=== PATIENT | male | born 1950 | race Caucasian/White ===

== ENCOUNTER 2016-06-11 06:49 | Emergency (ER) | payer SELFPAY ==
[2016-06-11 07:03] VITALS: BP 133/74
== END 2016-06-11 07:57 | disposition left against medical advice (07) ==
LOC: ER 06:49
DX: Z53.21 Procedure and treatment not carried out due to patient leaving prior to being seen by health care provider (principal)

== ENCOUNTER 2017-06-11 01:10 | Emergency (ER) | payer SELFPAY ==
[2017-06-11] MEDS ORDERED: ASPIRIN 81 MG TABLET, CHEWABLE PO ONE (01:16)
[2017-06-11 02:56] LABS: ABSOLUTE LYMPHOCYTES (AUTO) 1.4 10^3/uL (0.5-4.7); ABSOLUTE MONOCYTES (AUTO) 1.1 10^3/uL (0.1-1.4); ABSOLUTE NEUT (AUTO) 10.4 10^3/uL (1.7-8.2); BASOPHILS % (AUTO) 0.3 % (0-2); EOSINOPHILS % (AUTO) 0.1 % (0-6); HEMATOCRIT 42.4 % (37.9-51.0); LYMPHOCYTES % (AUTO) 10.9 % (13-45); MEAN CORPUSCULAR HEMOGLOBIN 26.5 pg (27.0-33.4); MEAN CORPUSCULAR HGB CONC 32.9 g/dL (32.0-36.0); MEAN CORPUSCULAR VOLUME 81 fl (80-97); MONOCYTES % (AUTO) 8.8 % (3-13); PLATELET COUNT 247 10^3/uL (150-450); RED BLOOD COUNT 5.26 10^6/uL (4.35-5.55); RED CELL DISTRIBUTION WIDTH 15.2 % (11.5-14.0); SEGMENTED NEUTROPHILS % (AUTO) 79.9 % (42-78); TOTAL CELLS COUNTED % (AUTO) 100 %
[2017-06-11 03:11] LABS: ALANINE AMINOTRANSFERASE 25 U/L (21-72); ALBUMIN 4.4 g/dL (3.5-5.0); ALKALINE PHOSPHATASE 104 U/L (38-126); ANION GAP 17 (5-19); ASPARTATE AMINO TRANSFERASE 47 U/L (17-59); BILIRUBIN,DIRECT 0.3 mg/dL (0.0-0.4); BILIRUBIN,TOTAL 0.7 mg/dL (0.2-1.3); BLOOD UREA NITROGEN 13 mg/dL (7-20); CARBON DIOXIDE 22 mmol/L (22-30); CHLORIDE 94 mmol/L (98-107); CREATINE KINASE 1015 U/L (55-170); GLUCOSE 80 mg/dL (75-110); SODIUM 132.5 mmol/L (137-145); TOTAL PROTEIN 7.6 g/dL (6.3-8.2)
[2017-06-11] MEDS ORDERED: MULTIVITAMIN TABLET PO ONE (03:11)
[2017-06-11] MEDS ORDERED: THIAMINE HCL 100 MG in NORMAL SALINE 50 ML IV ONE (03:12)
[2017-06-11] MEDS ORDERED: FOLIC ACID INJ 5 MG/1 ML 10 ML VIAL IV ONE (03:15)
[2017-06-11 03:23] LABS: CREATINE KINASE MB 4.09 ng/mL (<4.55); TROPONIN I 0.018 ng/mL
[2017-06-11] MEDS ORDERED: THIAMINE HCL INJ 200 MG/2 ML VIAL ONE (03:31)
[2017-06-11] MEDS ORDERED: NORMAL SALINE 1000 ML 1,000 ML IV ONE (04:11)
--- NOTE | 2017-06-11 04:19 | RADIOLOGY REPORT (SQ) ---
EXAM DESCRIPTION: CHEST SINGLE VIEW CLINICAL HISTORY: 67 years Male, cp COMPARISON: 2.3.14. NUMBER OF VIEWS/TECHNIQUE: 1/AP LIMITATIONS: None. FINDINGS: Minimal atelectasis or scar of the right costophrenic angle, normal cardiac silhouette, and intact bony thorax. IMPRESSION: No acute cardiopulmonary findings.
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
--- NOTE | 2017-06-11 09:30 | EKG REPORT ---
SEVERITY:- ABNORMAL ECG - SINUS RHYTHM LEFT ATRIAL ABNORMALITY LVH WITH SECONDARY REPOLARIZATION ABNORMALITY : Confirmed by: Elijah Glass 11-Jun-2017 09:30:24
[2017-06-11 11:31] VITALS: BP 102/59
== END 2017-06-11 11:37 | disposition home or self-care (01) ==
LOC: ER 01:10
DX: F10.129 Alcohol abuse with intoxication, unspecified (principal); F17.210 Nicotine dependence, cigarettes, uncomplicated; R42 Dizziness and giddiness; R53.1 Weakness; R11.10 Vomiting, unspecified; I10 Essential (primary) hypertension; F32.9 Major depressive disorder, single episode, unspecified; Z88.5 Allergy status to narcotic agent; Z88.0 Allergy status to penicillin
CPT/HCPCS: 93005; 99284; 96361; 96374; 96375; 36415; 82553; 82962; 82550; 85025; 80053; 84484; 71045; 93010; J3490; J3411; J7030

== ENCOUNTER 2017-07-11 23:34 | Emergency (ER) | payer SELFPAY ==
[2017-07-12] MEDS ORDERED: COLCHICINE 0.6 MG TABLET PO ONE ×2 (00:56→06:39)
[2017-07-12] MEDS ORDERED: INDOMETHACIN 50 MG CAPSULE PO ONE (00:57)
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
[2017-07-12 07:57] VITALS: BP 124/86
== END 2017-07-12 07:56 | disposition home or self-care (01) ==
LOC: ER 23:34
DX: M10.9 Gout, unspecified (principal); M79.671 Pain in right foot; M79.672 Pain in left foot; Z88.5 Allergy status to narcotic agent; Z88.0 Allergy status to penicillin; Z87.891 Personal history of nicotine dependence; I10 Essential (primary) hypertension
CPT/HCPCS: 99283; J3490

== ENCOUNTER 2018-03-28 21:11 | Emergency (ER) | payer SELFPAY ==
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
[2018-03-29 02:14] VITALS: BP 118/70
== END 2018-03-29 02:14 | disposition home or self-care (01) ==
LOC: ER 21:11
DX: Z00.00 Encounter for general adult medical examination without abnormal findings (principal); Z76.0 Encounter for issue of repeat prescription; I10 Essential (primary) hypertension; Z59.0 Homelessness; Z88.5 Allergy status to narcotic agent; Z88.0 Allergy status to penicillin
CPT/HCPCS: 99282

== ENCOUNTER 2018-03-30 02:17 | Emergency (ER) | payer SELFPAY ==
[2018-03-30 02:33] VITALS: BP 120/74
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
== END 2018-03-30 03:46 | disposition home or self-care (01) ==
LOC: ER 02:17
DX: R04.0 Epistaxis (principal); Z59.0 Homelessness; F17.210 Nicotine dependence, cigarettes, uncomplicated; I10 Essential (primary) hypertension
CPT/HCPCS: 99283

== ENCOUNTER 2018-07-10 21:30 | Emergency (ER) | payer SELFPAY ==
[2018-07-10] MEDS ORDERED: OXYCODONE-ACETAMINOPHEN 5-325 MG TABLET PO ONE (22:26)
--- NOTE | 2018-07-10 23:07 | RADIOLOGY REPORT (SQ) ---
EXAM DESCRIPTION: XR CHEST 2 VIEWS COMPLETED DATE/TME: 07/10/2018 22:25 CLINICAL HISTORY: 68 years, Male, sob COMPARISON: 06/11/2017 chest x-ray NUMBER OF VIEWS: 2 TECHNIQUE: Frontal and lateral views of the chest LIMITATIONS: None. FINDINGS: Cardiomegaly. Osteopenia. Mild interstitial edema. Tiny bibasilar effusions and/or pleural thickening. Underlying COPD. Post surgical change cervical spine IMPRESSION: Mild interstitial edema with tiny effusions and/or pleural thickening. Underlying COPD copyright 2010 [employer]- All Rights Reserved
--- NOTE | 2018-07-10 23:12 | RADIOLOGY REPORT (SQ) ---
EXAM DESCRIPTION: XR HUMERUS COMPLETED DATE/TME: 07/10/2018 22:25 CLINICAL HISTORY: 68 years, Male, pain COMPARISON: None. NUMBER OF VIEWS: 3 TECHNIQUE: 3 view left humerus LIMITATIONS: None. FINDINGS: Osteopenia. Negative for acute fracture or dislocation. Degenerative changes of the elbow and shoulder. Soft tissues are unremarkable IMPRESSION: Osteopenia with degenerative change copyright 2010 [email or web address]- All Rights Reserved
[2018-07-10] MEDS ORDERED: IPRATROPIUM/ALBUTEROL 0.5-2.5 MG/3 ML AMPUL NEB ONE (23:20)
--- NOTE | 2018-07-10 23:20 | ER Document Report ---
ED General - General Chief Complaint: Arm Pain Stated Complaint: LEFT ARM PAIN Time Seen by Provider: 07/10/18 22:01 Mode of Arrival: Medic Information source: Patient, Law Enforcement, Emergency Med Personnel, [facility] Records Notes: 68-year-old male presents via EMS from the local homeless custodial after he was refused entrance. Víctor RUTH was called to the custodial because the patient was intoxicated and would not leave. He reports that he was taken from [facility] where he was and presents for over the last 9 months and brought to the custodial here in [place] but they refused him because he was intoxicated. Patient has multiple chronic complaints including bilateral lower extremity leg pain, left upper extremity pain. He states that he is supposed to be taking multiple medications but he does not what no where they are or what they are. He states that over the last 9 months while he was in present he had been taken back in for to [facility] where he reports that they told him he requires "stents". TRAVEL OUTSIDE OF THE [place] IN LAST 30 DAYS: No - HPI Onset: Other Onset/Duration: Persistent Quality of pain: Achy Severity: Mild Associated symptoms: Leg swelling - Chronic, Shortness of breath - Occasionally not currently, Other - Leg pain chronic, left shoulder pain chronic. denies: Chest pain, Nonproductive cough, Productive cough, Fever, Headache, Nausea, Vomiting, Sore throat, Sweating Exacerbated by: Movement, Walking Relieved by: Denies Similar symptoms previously: Yes Recently seen / treated by doctor: Yes - Related Data Allergies/Adverse Reactions: morphine [Morphine] Allergy (Verified 06/11/16 07:03) Penicillins Allergy (Verified 06/11/17 02:01) Past Medical History - General Information source: Patient, Law Enforcement, Emergency Med Personnel, [facility] Records - Social History Smoking Status: Unknown if Ever Smoked Frequency of alcohol use: Occasional Drug Abuse: None Lives with: Homeless Family History: CAD Patient has suicidal ideation: No Patient has homicidal ideation: No - Past Medical History Cardiac Medical History: Reports: Hx Hypertension, Hx Peripheral Vascular Disease Renal/ Medical History: Denies: Hx Peritoneal Dialysis Musculoskeletal Medical History: Reports Hx Arthritis, Reports Hx Gout, Reports Hx Musculoskeletal Deformity, Reports Hx Musculoskeletal Trauma Psychiatric Medical History: Reports: Hx Depression Past Surgical History: Reports: Hx Bowel Surgery - Multiple bowel surgeries, Hx Orthopedic Surgery - Right hip surgery,neck - Immunizations Hx Diphtheria, Pertussis, Tetanus Vaccination: Yes Review of Systems - Review of Systems Notes: REVIEW OF SYSTEMS: CONSTITUTIONAL : Denies fever, chills, or sweats. Denies recent illness. Denies weight loss, recent hospitalizations. EENT: Denies visual changes, eye pain. Denies sore throat, oral lesions, difficulty swallowing. CARDIOVASCULAR: Denies chest pain. Denies palpitations. Denies lower extremity edema. RESPIRATORY: Denies cough. Denies wheezing. GASTROINTESTINAL: Denies abdominal pain or distention. Denies nausea, vomiting, or diarrhea. Denies blood in vomitus, stools, or per rectum. Denies black, tarry stools. Denies constipation. GENITOURINARY: Denies difficulty urinating, painful urination, frequency, blood in urine, testicular pain or penile discharge. MUSCULOSKELETAL: Denies back or neck pain or stiffness. SKIN: Denies rash, lesions or sores. HEMATOLOGIC : Denies easy bruising or bleeding. LYMPHATIC: Denies swollen glands. NEUROLOGICAL: Denies confusion or altered mental status. Denies loss of consciousness. Denies dizziness or lightheadedness. Denies headache. Denies weakness or paralysis. Denies problems difficulty with ambulation, slurred speech. Denies sensory loss, numbness,. Denies seizures. PSYCHIATRIC: Denies anxiety or stress. Denies depression, suicidal ideation, or Physical Exam - Vital signs Vitals: Temp Pulse Resp BP Pulse Ox 98 F 87 16 116/72 100 07/10/18 21:30 07/10/18 21:30 07/10/18 21:30 07/10/18 21:30 07/10/18 21:30 - Notes Notes: PHYSICAL EXAMINATION: GENERAL: Well-appearing, well-nourished and in no acute distress. HEAD: Atraumatic, normocephalic. EYES: Pupils equal round and reactive to light, extraocular movements intact, sclera anicteric, conjunctiva are normal. ENT: Nares patent, oropharynx clear without exudates. Moist mucous membranes. NECK: Normal range of motion, supple without lymphadenopathy LUNGS: Breath sounds clear to auscultation bilaterally and equal. No wheezes rales or rhonchi. HEART: Regular rate and rhythm without murmurs ABDOMEN: Soft, nontender, nondistended abdomen. No guarding, no rebound. No masses appreciated. Musculoskeletal: Normal range of motion, no pitting or edema. No cyanosis. Right lower extremity with 1+ pitting edema no erythema, pain with palpation to the calf. Reported to be chronic. NEUROLOGICAL: Cranial nerves grossly intact. Normal speech, normal gait. Normal sensory, motor exams PSYCH: Normal mood, normal affect. SKIN: Warm, Dry, normal turgor, no rashes or lesions noted. Course - Re-evaluation Re-evalutation: Chest X-Ray 07/10/18 22:25 IMPRESSION: Mild interstitial edema with tiny effusions and/or pleural thickening. Underlying COPD copyright 2010 [employer]- All Rights Reserved Humerus X-Ray 07/10/18 22:25 IMPRESSION: Osteopenia with degenerative change copyright 2010 [employer]- All Rights Reserved Temp Pulse Resp BP Pulse Ox 98 F 87 16 116/72 100 07/10/18 21:30 07/10/18 21:30 07/10/18 21:30 07/10/18 21:30 07/10/18 21:30 07/10/18 23:19 68-year-old homeless man was brought in via EMS from the homeless custodial after police were called because the patient refused to leave the custodial which refused him entrance due to alcohol intoxication. Patient reports that he has spent the last 9 months in group home. He has multiple chronic complaints including bilateral feet pain, left shoulder pain, bilateral leg pain, shortness of breath with walking. He does report that he has been receiving care at [facility] and is currently supposed to be on medication but he states that he lost them and has no idea what they are. Patient has no family in the area, no transportation, no money. Social work consult has been placed to help with placement and medication reconciliation. 07/11/18 02:25 - Vital Signs Vital signs: Temp Pulse Resp BP Pulse Ox 98 F 87 16 116/72 100 07/10/18 21:30 07/10/18 21:30 07/10/18 21:30 07/10/18 21:30 07/10/18 21:30 - Diagnostic Test Radiology reviewed: Image reviewed, Reports reviewed Discharge - Discharge Clinical Impression: Homeless, Chronic pain of left upper extremity, Chronic shortness of breath Alcohol intoxication Qualifiers: Complication of substance-induced condition: uncomplicated Qualified Code(s): F10.920 - Alcohol use, unspecified with intoxication, uncomplicated Condition: Good
--- NOTE | 2018-07-11 10:25 | ER Document Report ---
Doctor's Note Notes: 07/11/18 10:23 Patient seen and evaluated. His vital signs are stable. He is complaining of pain in his left arm which is chronic and unchanged. He denies any acute dyspnea. Patient is clinically sober and mentating appropriately. He is calm and cooperative. He is awaiting licensed master social worker consultation to assist in ge tting him his home medications as well as primary care follow-up and possibly living/transportation assistance. Patient does state he has an aunt in the area who will pick him up but will not allow him to live with her
[2018-07-11 11:02] VITALS: BP 144/88
== END 2018-07-11 12:28 | disposition home or self-care (01) ==
LOC: ER 21:30
DX: G89.29 Other chronic pain (principal); M79.602 Pain in left arm; Z59.0 Homelessness; R06.02 Shortness of breath; F10.920 Alcohol use, unspecified with intoxication, uncomplicated
CPT/HCPCS: 94640; 99283; 71046; 73060; J7620

== ENCOUNTER 2018-07-12 01:17 | Observation (INO) | payer SELFPAY ==
[2018-07-12] MEDS ORDERED: ASPIRIN 81 MG TABLET, CHEWABLE PO ONE (01:30)
--- NOTE | 2018-07-12 01:30 | ER Document Report ---
ED General - General Chief Complaint: Palpitations Stated Complaint: CHEST PAIN Time Seen by Provider: 07/12/18 01:30 Notes: Patient is a 68-year-old male that presents to the emergency department for chief complaint of chest pain. The patient reports that the pain started over the past 3 days. The currently rate the pain as 2 out of 10, and described as heaviness in his chest. They have had associated shortness of breath and dyspnea on exertion. Denies any diaphoresis, nausea or vomiting or abdominal pain. Their risk factors for heart disease include history of CHF, tobacco use. He reports he was told he should have a heart cath but never had one. He states he recently got out of group home, he is been having progressive dyspnea on exertion over the past several months, but worse over the past 2 days, and today he had chest pain associated as well. He states he was on medications, but has not been on them in some time. He also complains of having pain in both of his feet and tingling in his feet and hands. Past Medical History: CHF Past Surgical History: Colon resection Social History: Admits to smoking cigarettes, and daily alcohol use. Currently the patient is homeless, does not have a doctor Family History: Reviewed and noncontributory for presenting illness Allergies: Reviewed, see documented allergy list. REVIEW OF SYSTEMS: Other than noted above, the 12 point review of systems was reviewed with the patient and were negative, all pertinent findings are included in the HPI. PHYSICAL EXAMINATION: Vital signs reviewed, nursing noted reviewed. GENERAL: Elderly male, appears somewhat disheveled HEAD: Atraumatic, normocephalic. EYES: Eyes appear normal, extraocular movements intact, sclera anicteric, c onjunctiva are normal. ENT: nares patent, oropharynx clear without exudates. Moist mucous membranes. NECK: Normal range of motion, supple without lymphadenopathy LUNGS: Breath sounds clear to auscultation bilaterally and equal. No wheezes rales or rhonchi. HEART: Heart rate borderline tachycardic, regular rhythm, 3+ systolic murmur noted. ABDOMEN: Soft, nontender, normoactive bowel sounds. No rebound, guarding, or rigidity. No masses appreciated. Large ventral laparotomy incisional scar, healed, no signs of infection, abdominal bruits noted. EXTREMITIES: good range of motion, bilateral lower extremity edema, feet are tender to palpate bilaterally. No erythema, or warmth appreciated. NEUROLOGICAL: No focal neurological deficits. Moves all extremities spontaneously Motor and sensory grossly intact on exam. PSYCH: Normal mood, normal affect. SKIN: Warm, Dry, normal turgor, no rashes or lesions noted on exposed skin TRAVEL OUTSIDE OF THE [place] IN LAST 30 DAYS: No - Related Data Allergies/Adverse Reactions: morphine [Morphine] Allergy (Verified 07/12/18 01:27) Penicillins Allergy (Verified 07/12/18 01:27) Past Medical History - Social History Smoking Status: Unknown if Ever Smoked Frequency of alcohol use: Heavy Family History: CAD Patient has suicidal ideation: No Patient has homicidal ideation: No - Past Medical History Cardiac Medical History: Reports: Hx Hypertension, Hx Peripheral Vascular Disease Renal/ Medical History: Denies: Hx Peritoneal Dialysis Musculoskeletal Medical History: Reports Hx Arthritis, Reports Hx Gout, Reports Hx Musculoskeletal Deformity, Reports Hx Musculoskeletal Trauma Psychiatric Medical History: Reports: Hx Depression Past Surgical History: Reports: Hx Bowel Surgery - Multiple bowel surgeries, Hx Orthopedic Surgery - Right hip surgery,neck - Immunizations Hx Diphtheria, Pertussis, Tetanus Vaccination: Yes Physical Exam - Vital signs Vitals: Resp Pulse Ox 12 97 07/12/18 01:23 07/12/18 01:23 Course - Re-evaluation Re-evalutation: Patient seen and examined vital signs reviewed. Laboratory data and imaging were ordered as appropriate for the patient's p resenting symptoms and complaint, with consideration of any critical or life threatening conditions that may be associated with their obtained history and exam as noted above. Patient was treated with aspirin 324 mg, and Lasix 40 mg. Results were reviewed when available and demonstrated chest x-ray, with mild interstitial prominence, and a small pleural effusion, blood work revealed a indeterminate troponin, when compared with prior labs the patient's troponins have been slightly elevated, his BNP was over 3000, no prior for comparison, but suspect acute on chronic heart failure, given that the patient had peripheral edema, and interstitial prominence on his chest x-ray with dyspnea on exertion. The patient was re-evaluated and was improved Evaluation was most consistent with chest pain, acute on chronic CHF Results were discussed with the patient at this point after careful conside ration I feel that that patient should be admitted to the hospital. This was discussed with the patient that it is in the best interest for their care to be admitted for further evaluation and management. Patient agreed with this plan of care. A call was placed to the admitted physician, Dr. Altman who graciously accepted the patient onto their service. *Note is created using voice recognition software and may contain spelling, syntax or grammatical errors. Laboratory 07/12/18 07/12/18 07/12/18 01:44 01:44 01:44 WBC 8.3 RBC 3.87 L Hgb 9.2 L Hct 28.4 L MCV 73 L MCH 23.6 L MCHC 32.3 RDW 17.6 H Plt Count 246 Seg Neutrophils % 70.3 Lymphocytes % 17.1 Monocytes % 9.9 Eosinophils % 1.4 Basophils % 1.3 Absolute Neutrophils 5.8 Absolute Lymphocytes 1.4 Absolute Monocytes 0.8 Absolute Eosinophils 0.1 Absolute Basophils 0.1 Sodium 135.9 L Potassium 4.3 Chloride 102 Carbon Dioxide 26 Anion Gap 8 BUN 13 Creatinine 0.89 Est GFR ( Amer) > 60 Est GFR (Non-Af Amer) > 60 Glucose 97 Calcium 9.2 Total Bilirubin 0.6 Direct Bilirubin 0.4 Neonat Total Bilirubin Not Reportable Neonat Direct Bilirubin Not Reportable Neonat Indirect Bili Not Reportable AST 55 ALT 23 Alkaline Phosphatase 79 Troponin I 0.048 NT-Pro-B Natriuret Pep Total Protein 7.2 Albumin 3.6 07/12/18 01:44 WBC RBC Hgb Hct MCV MCH MCHC RDW Plt Count Seg Neutrophils % Lymphocytes % Monocytes % Eosinophils % Basophils % Absolute Neutrophils Absolute Lymphocytes Absolute Monocytes Absolute Eosinophils Absolute Basophils Sodium Potassium Chloride Carbon Dioxide Anion Gap BUN Creatinine Est GFR ( Amer) Est GFR (Non-Af Amer) Glucose Calcium Total Bilirubin Direct Bilirubin Neonat Total Bilirubin Neonat Direct Bilirubin Neonat Indirect Bili AST ALT Alkaline Phosphatase Troponin I NT-Pro-B Natriuret Pep 3070 H Total Protein Albumin Chest X-Ray 07/12/18 01:30 IMPRESSION: Right basilar parenchymal/pleural changes. - Vital Signs Vital signs: Temp Pulse Resp BP Pulse Ox 98.1 F 18 129/93 H 97 07/12/18 01:26 07/12/18 03:00 07/12/18 03:00 07/12/18 03:00 - Laboratory Result Diagrams: 07/12/18 01:44 07/12/18 01:44 Laboratory results interpreted by me: 07/12/18 07/12/18 07/12/18 01:44 01:44 01:44 RBC 3.87 L Hgb 9.2 L Hct 28.4 L MCV 73 L MCH 23.6 L RDW 17.6 H Sodium 135.9 L NT-Pro-B Natriuret Pep 3070 H - EKG Interpretation by Me Additional EKG results interpreted by me: EKG demonstrates sinus rhythm with a ventricular rate of 90 bpm, normal axis, QTC 460 ms, there are ST depressions noted in leads II, III, aVF and V5 and V6, there is presence of LVH voltage criteria, this is compared with prior EKG from 06/11/2017, where the ST depressions in leads V5 and V6 appear to be more prominent on todays EKG. Discharge - Discharge Clinical Impression: Chest pain Qualifiers: Chest pain type: unspecified Qualified Code(s): R07.9 - Chest pain, unspecified Acute exacerbation of CHF (congestive heart failure) Qualifiers: Heart failure type: unspecified Qualified Code(s): I50.9 - Heart failure, unspecified Anemia Qualifiers: Anemia type: unspecified type Qualified Code(s): D64.9 - Anemia, unspecified Condition: Stable Disposition: ADMITTED OBSERVATION Admitting Provider: Hospitalist - Dr. Altman Unit Admitted: Telemetry
[2018-07-12 01:55] LABS: ABSOLUTE BASOPHILS # (AUTO) 0.1 10^3/uL (0.0-0.2); ABSOLUTE EOSINOPHILS # (AUTO) 0.1 10^3/uL (0.0-0.6); ABSOLUTE LYMPHOCYTES (AUTO) 1.4 10^3/uL (0.5-4.7); ABSOLUTE MONOCYTES (AUTO) 0.8 10^3/uL (0.1-1.4); ABSOLUTE NEUT (AUTO) 5.8 10^3/uL (1.7-8.2); BASOPHILS % (AUTO) 1.3 % (0-2); EOSINOPHILS % (AUTO) 1.4 % (0-6); HEMATOCRIT 28.4 % (37.9-51.0); HEMOGLOBIN 9.2 g/dL (13.5-17.0); LYMPHOCYTES % (AUTO) 17.1 % (13-45); MEAN CORPUSCULAR HEMOGLOBIN 23.6 pg (27.0-33.4); MEAN CORPUSCULAR HGB CONC 32.3 g/dL (32.0-36.0); MEAN CORPUSCULAR VOLUME 73 fl (80-97); MONOCYTES % (AUTO) 9.9 % (3-13); PLATELET COUNT 246 10^3/uL (150-450); RED BLOOD COUNT 3.87 10^6/uL (4.35-5.55); RED CELL DISTRIBUTION WIDTH 17.6 % (11.5-14.0); SEGMENTED NEUTROPHILS % (AUTO) 70.3 % (42-78); TOTAL CELLS COUNTED % (AUTO) 100 %; WHITE BLOOD COUNT 8.3 10^3/uL (4.0-10.5)
[2018-07-12 02:15] LABS: ALANINE AMINOTRANSFERASE 23 U/L (21-72); ALBUMIN 3.6 g/dL (3.5-5.0); ALKALINE PHOSPHATASE 79 U/L (38-126); ANION GAP 8 (5-19); ASPARTATE AMINO TRANSFERASE 55 U/L (17-59); BILIRUBIN,DIRECT 0.4 mg/dL (0.0-0.4); BILIRUBIN,TOTAL 0.6 mg/dL (0.2-1.3); BLOOD UREA NITROGEN 13 mg/dL (7-20); CALCIUM 9.2 mg/dL (8.4-10.2); CARBON DIOXIDE 26 mmol/L (22-30); CHLORIDE 102 mmol/L (98-107); GLUCOSE 97 mg/dL (75-110); POTASSIUM 4.3 mmol/L (3.6-5.0); SODIUM 135.9 mmol/L (137-145); TOTAL PROTEIN 7.2 g/dL (6.3-8.2)
--- NOTE | 2018-07-12 02:15 | RADIOLOGY REPORT (SQ) ---
EXAM DESCRIPTION: XR CHEST 1 VIEW COMPLETED DATE/TME: 07/12/2018 01:30 CLINICAL HISTORY: 68 years, Male, chest pain Comparison: July 10, 2018 FINDINGS: Right basilar airspace opacity probably represents subsegmental atelectasis. Mild diffuse interstitial lung changes. Tiny right pleural effusion versus pleural thickening. Cardiac silhouette is mildly enlarged but stable. IMPRESSION: Right basilar parenchymal/pleural changes.
[2018-07-12] MEDS ORDERED: FUROSEMIDE INJ/PF 40 MG/4 ML SDV IV ONE (02:24)
[2018-07-12] MEDS ORDERED: TEMAZEPAM 15 MG CAPSULE PO PRN (03:44)
[2018-07-12] MEDS ORDERED: MAG HYDROX/AL HYDROX/SIMETH SUSP 30 ML UDCUP PO PRN (03:44)
[2018-07-12] MEDS ORDERED: MAGNESIUM HYDROXIDE SUSP 30 ML UDCUP PO PRN (03:44)
[2018-07-12] MEDS ORDERED: ONDANSETRON HCL INJ/PF 4 MG/2 ML SDV IV PRN (03:44)
[2018-07-12] MEDS ORDERED: DIAZEPAM INJ 10 MG/2 ML DISP.SYRIN IV PRN (03:52)
[2018-07-12] MEDS ORDERED: ALBUTEROL SULFATE 0.083% NEB 2.5 MG/3 ML AMPUL NEB PRN (03:52)
[2018-07-12] MEDS ORDERED: HYDRALAZINE HCL INJ/PF 20 MG/1 ML SDV IV PRN (03:52)
[2018-07-12] MEDS ORDERED: ACETAMINOPHEN 325 MG TABLET PO PRN (03:52)
[2018-07-12] MEDS ORDERED: NALBUPHINE HCL INJ 10 MG/1 ML AMPULE IV PRN (03:52)
[2018-07-12] MEDS ORDERED: NICOTINE 21 MG/24 HR PATCH.TD24 TD PRN (03:52)
[2018-07-12] MEDS ORDERED: CHLORPROMAZINE HCL INJ 25 MG/1 ML AMPULE IV PRN (03:52)
[2018-07-12] MEDS ORDERED: NITROGLYCERIN 0.4 MG/TAB 25 TAB/BOTTLE SL PRN (03:52)
[2018-07-12 05:36] VITALS: BP 97/64
--- NOTE | 2018-07-12 05:40 | PDOC H&P ---
History of Present Illness Admission Date/PCP: 07/12/18 03:04 Patient complains of: Chest pain History of Present Illness: MAGALI SERRANO JR is a 68 year old male who presents the emergency room with a 3- day history of chest pain. Patient admits that he has been having constant, waxing and waning, mild to moderate, central anterior chest pain/heaviness over the last 3 days. His chest pain is currently resolved after being treated in the emergency room. The pain was also associated with progressively worsening dyspnea with dyspnea on exertion which he classified as mild to moderate. He admits to having numerous prior similar episodes related to his congestive heart failure and further admits that he has not taken his medications for numerous months. He further complains of what he feels are associated symptoms of pain and tingling in both of his hands and feet. He denies other associated signs and symptoms and relates that he has not identified any additional aggravating or ameliorating factors for his chest pain and dyspnea. In the emergency room he was found to have no evidence for acute myocardial injury or ischemia was noted to have an increased BNP. He was subsequently admitted to the hospital on observation status for further evaluation and treatment. Past Medical History Cardiac Medical History: Reports: Congestive Heart Failure, Hypertension, Peripheral Vascular Disease Denies: Coronary Artery Disease, Myocardial Infarction Pulmonary Medical History: Reports: Bronchitis, Pneumonia EENT Medical History: Denies: Cataracts, Nose - Nasal polyps Neurological Medical History: Denies: Hemorrhagic CVA, Ischemic CVA, Seizures Endocrine Medical History: Denies: Diabetes Mellitus Type 1, Diabetes Mellitus Type 2, Hyperthyroidism, Hypothyroidism Renal/ Medical History: Denies: Chronic Kidney Disease, Nephrolithiasis Malignancy Medical History: Reports: None GI Medical History: Denies: Cirrhosis, Hepatitis Musculoskeltal Medical History: Reports: Arthritis, Gout Skin Medical History: Denies: Eczema, Psoriasis Psychiatric Medical History: Reports: Alcohol Dependency, Depression, Substance Abuse, Tobacco Dependency Traumatic Medical History: Reports: None Hematology: Denies: Anemia, Bleeding Tendencies Infectious Medical History: Reports: None Past Surgical History Past Surgical History: Reports: Orthopedic Surgery - Right hip surgery,neck Social History Information Source: Patient Smoking Status: Current Every Day Smoker Frequency of Alcohol Use: Heavy Hx Recreational Drug Use: Yes Drugs: Cocaine Hx Prescription Drug Abuse: No - Advance Directive Resuscitation Status: Full Code Surrogate healthcare decision maker:: Refused to provide Family History Family History: CAD, Hypertension Parental Family History Reviewed: Yes Children Family History Reviewed: No Sibling(s) Family History Reviewed.: Yes Medication/Allergy Home Medications: Aspirin 81 mg PO DAILY PRN #30 tab 03/24/15 Docusate Sodium [Colace 100 mg Capsule] 100 mg PO DAILY #30 capsule 03/24/15 Lisinopril [Zestril] 10 mg PO DAILY #30 tablet 03/24/15 Loratadine 10 mg PO DAILY #30 tab.rapdis 03/24/15 Metoprolol Succinate [Toprol XL 100 mg Tablet] 150 mg PO DAILY #30 tab.sr.24h 03/24/15 Miconazole Nitrate [Antifungal Cream] 28 gm TP BID #141 cream.gm. 03/24/15 Allergies/Adverse Reactions: morphine [Morphine] Allergy (Verified 07/12/18 01:27) Penicillins Allergy (Verified 07/12/18 01:27) Review of Systems Constitutional: ABSENT: chills, fever(s) Eyes: ABSENT: visual disturbances, other - Ocular pain Ears: ABSENT: hearing changes, other - Ear pain Nose, Mouth, and Throat: ABSENT: mouth pain, sore throat Cardiovascular: PRESENT: as per HPI, chest pain, dyspnea on exertion. ABSENT: edema, orthropnea, palpitations Respiratory: PRESENT: dyspnea. ABSENT: cough Gastrointestinal: ABSENT: abdominal pain, constipation, diarrhea, nausea, vomiting Genitourinary: ABSENT: dysuria, hematuria Musculoskeletal: ABSENT: back pain, joint swelling Integumentary: ABSENT: pruritus, rash Neurological: PRESENT: paresthesias - Bilateral feet and hands with numbness and tingling. ABSENT: confusion, convulsions, focal weakness, memory loss Psychiatric: PRESENT: depression. ABSENT: anxiety Endocrine: ABSENT: cold intolerance, heat intolerance Hematologic/Lymphatic: ABSENT: easy bleeding, easy bruising Physical Exam Vital Signs: Temp Pulse Resp BP Pulse Ox 98.1 F 18 129/93 H 97 07/12/18 01:26 07/12/18 03:00 07/12/18 03:00 07/12/18 03:00 Intake & Output 07/10/18 07/11/18 07/12/18 23:59 23:59 23:59 Weight 71.7 kg General appearance: PRESENT: no acute distress, cooperative, disheveled Head exam: PRESENT: atraumatic, normocephalic Eye exam: PRESENT: conjunctiva pink. ABSENT: scleral icterus Ear exam: PRESENT: normal external ear exam. ABSENT: bleeding, drainage Mouth exam: PRESENT: dry mucosa, neck supple Neck exam: ABSENT: JVD, thyromegaly, tracheal deviation Respiratory exam: PRESENT: prolonged expiratory phas - Mildly prolonged expiratory phase throughout all castro, rales - Minimal bibasilar rales noted, symmetrical, unlabored, wheezes - Mild expiratory wheezes bilaterally in all castro Cardiovascular exam: PRESENT: RRR, systolic murmur - 4/6 crescendo decrescendo systolic murmur heard over the entire precordium loudest at the upper right rosendo rnal border. ABSENT: clicks, gallop, rubs Pulses: PRESENT: normal radial pulses, normal dorsalis pedis pul Vascular exam: PRESENT: normal capillary refill. ABSENT: pallor GI/Abdominal exam: PRESENT: normal bowel sounds, soft Rectal exam: PRESENT: deferred Extremities exam: PRESENT: pedal edema - bipedal edema, +1 edema - Bilateral pretibial edema. ABSENT: joint swelling Musculoskeletal exam: ABSENT: deformity, dislocation Neurological exam: PRESENT: alert, oriented to person, oriented to place, oriented to time, oriented to situation, CN II-XII grossly intact. ABSENT: motor sensory deficit Psychiatric exam: PRESENT: agitated, anxious, other - Angry mood Skin exam: PRESENT: dry, intact, warm. ABSENT: jaundice, rash, urticaria Results Laboratory Results: 07/12/18 01:44 07/12/18 01:44 07/12/18 07/12/18 01:44 01:44 WBC 8.3 RBC 3.87 L Hgb 9.2 L Hct 28.4 L MCV 73 L MCH 23.6 L MCHC 32.3 RDW 17.6 H Plt Count 246 Seg Neutrophils % 70.3 Lymphocytes % 17.1 Monocytes % 9.9 Eosinophils % 1.4 Basophils % 1.3 Absolute Neutrophils 5.8 Absolute Lymphocytes 1.4 Absolute Monocytes 0.8 Absolute Eosinophils 0.1 Absolute Basophils 0.1 Sodium 135.9 L Potassium 4.3 Chloride 102 Carbon Dioxide 26 Anion Gap 8 BUN 13 Creatinine 0.89 Est GFR ( Amer) > 60 Est GFR (Non-Af Amer) > 60 Glucose 97 Calcium 9.2 Total Bilirubin 0.6 AST 55 ALT 23 Alkaline Phosphatase 79 Total Protein 7.2 Albumin 3.6 07/12/18 07/12/18 01:44 01:44 Troponin I 0.048 NT-Pro-B Natriuret Pep 3070 H Impressions: Chest X-Ray 07/12/18 01:30 IMPRESSION: Right basilar parenchymal/pleural changes. Assessment and Plan - Diagnosis (1) Chest pain Qualifiers: Chest pain type: unspecified Qualified Code(s): R07.9 - Chest pain, u nspecified Is this a current diagnosis for this admission?: Yes Plan: Patient be admitted to observation status and telemetry for serial cardiac enzymes and EKGs. He will have an echocardiogram performed to evaluate his congestive heart failure and a consultation will be obtained with Dr. Aguirre. Initially his chest pain will be treated with nitroglycerin and Nubain 10 mg every every 3 hours as needed. Hypertension or symptoms of co ngestive heart failure will be treated with other medications as appropriate. (2) Acute exacerbation of CHF (congestive heart failure) Qualifiers: Heart failure type: unspecified Qualified Code(s): I50.9 - Heart failure, unspecified Is this a current diagnosis for this admission?: Yes Plan: Patient will undergo an echocardiogram to evaluate his earlier. In the interim he will receive intravenous Lasix x1 dose. Further intervention will be undertaken based on clinical findings. Dr. Aguirre will be consulted. (3) COPD (chronic obstructive pulmonary disease) Qualifiers: COPD type: unspecified COPD Qualified Code(s): J44.9 - Chronic obstructive pulmonary disease, unspecified Is this a current diagnosis for this admission?: Yes Plan: Patient has COPD based on his examination and evaluation. He is being treated initially with a nebulizer therapeutic regiment utilizing Xopenex and Atrovent 3 times daily with Pulmicort twice daily all delivered via nebulizer. An as needed treatment with albuterol will be available every hour. (4) Tobacco use disorder, moderate, dependence Is this a current diagnosis for this admission?: Yes Plan: Patient is advised to discontinue use of tobacco cessation counseling is provided briefly and a nicotine patch is available for the patient's use if he desires. (5) Alcohol abuse Is this a current diagnosis for this admission?: Yes Plan: Patient is advised to discontinue use of alcohol. He will be observed closely for any signs of alcohol withdrawal and early intervention will be provided if required. - Time Time Spent with patient: 35 or more minutes Smoking Cessation Education: 3 to 10 minutes Medications reviewed and adjusted accordingly: No - Not taking home meds Anticipated discharge: Home Within: within 48 hours - Inpatient Certification Based on my medical assessment, after consideration of the patient's comorbidities, presenting symptoms, or acuity I expect that the services needed warrant INPATIENT care.: No I certify that my determination is in accordance with my understanding of Medicare's requirements for reasonable and necessary INPATIENT services [42 CFR 412.3e].: No Medical Necessity: Need Close Monitoring Due to Risk of Patient Decompensation, Risk of Diagnosis Which Will Require Inpatient Eval/Care/Monitoring
--- NOTE | 2018-07-12 05:47 | Left Against Medical Advice ---
Against Medical Advice Admission Date/Time: 07/12/18 03:04 Primary Care Provider: Swetha Cazares PA-C Date of Patient Emmigration: 07/12/18 - Diagnosis: (1) Chest pain Is this a current diagnosis for this admission?: Yes (2) Acute exacerbation of CHF (congestive heart failure) Is this a current diagnosis for this admission?: Yes (3) COPD (chronic obstructive pulmonary disease) Is this a current diagnosis for this admission?: Yes (4) Tobacco use disorder, moderate, dependence Is this a current diagnosis for this admission?: Yes (5) Alcohol abuse Is this a current diagnosis for this admission?: Yes - Summary: Summary: Please see Admission and Progress Notes as well. MAGALI SERRANO JR is a 68 M, who LEFT AGAINST MEDICAL ADVICE. The Patient was admitted on 07/12/18 03:04.
[2018-07-12] MEDS ORDERED: HEPARIN SOD (PORCINE) 5,000 UNIT/ML 1 ML SYRINGE SUBCUT SCH (06:00)
[2018-07-12] MEDS ORDERED: BUDESONIDE NEB 0.5 MG/2 ML AMPUL NEB SCH (08:00)
[2018-07-12] MEDS ORDERED: LEVALBUTEROL HCL NEB 1.25 MG/3 ML AMPUL NEB SCH (08:00)
[2018-07-12] MEDS ORDERED: IPRATROPIUM BROMIDE 0.02% NEB 0.5 MG/2.5 ML AMPUL NEB SCH (08:00)
[2018-07-12] MEDS ORDERED: METOPROLOL SUCCINATE 50 MG TAB.SR.24H PO SCH (10:00)
[2018-07-12] MEDS ORDERED: LISINOPRIL 10 MG TABLET PO SCH (10:00)
[2018-07-12] MEDS ORDERED: DOCUSATE SODIUM 100 MG CAPSULE PO SCH (10:00)
[2018-07-12] MEDS ORDERED: SPIRONOLACTONE 25 MG TABLET PO SCH (10:00)
[2018-07-12] MEDS ORDERED: FAMOTIDINE 20 MG TABLET PO SCH (10:00)
--- NOTE | 2018-07-12 22:46 | EKG REPORT ---
SEVERITY:- ABNORMAL ECG - SINUS RHYTHM PROBABLE LEFT ATRIAL ABNORMALITY LVH WITH SECONDARY REPOLARIZATION ABNORMALITY : Confirmed by: Elijah Glass 12-Jul-2018 22:46:02
== END 2018-07-12 05:38 | disposition left against medical advice (07) ==
LOC: ER 01:17 → UNDOADMOB 03:04 → EH 03:04 → ER 05:38
PROVIDERS: ADMIT Emergency Medicine; ATTEND Emergency Medicine
PROC: HZ31ZZZ Individual Counseling for Substance Abuse Treatment, Behavioral (ICD-10-PCS; principal; 2018-07-12)
DX: R07.9 Chest pain, unspecified (principal); I11.0 Hypertensive heart disease with heart failure; I50.9 Heart failure, unspecified; J44.9 Chronic obstructive pulmonary disease, unspecified; F17.210 Nicotine dependence, cigarettes, uncomplicated; F10.10 Alcohol abuse, uncomplicated; R20.2 Paresthesia of skin; M79.642 Pain in left hand; M79.641 Pain in right hand; M79.672 Pain in left foot; M79.671 Pain in right foot; I73.9 Peripheral vascular disease, unspecified; M19.90 Unspecified osteoarthritis, unspecified site; R20.0 Anesthesia of skin; F32.9 Major depressive disorder, single episode, unspecified; R45.1 Restlessness and agitation; D64.9 Anemia, unspecified; J90 Pleural effusion, not elsewhere classified; Z53.21 Procedure and treatment not carried out due to patient leaving prior to being seen by health care provider; Z91.14 Patient's other noncompliance with medication regimen; Z82.49 Family history of ischemic heart disease and other diseases of the circulatory system; Z90.49 Acquired absence of other specified parts of digestive tract; Z59.0 Homelessness
CPT/HCPCS: 93005; 99285; 96374; 36415; 85025; 80053; 84484; 83880; 71045; 93010; 99406; J1940